=== PATIENT | male | born 1975 | race Hispanic/Latino ===

== ENCOUNTER 2023-01-26 15:53 | Emergency (ER) | payer OTHER ==
[2023-01-26] VITALS (8 sets, daily range): BP systolic 112–149; BP diastolic 78–106
[~2023-01-26] VITALS: Ht 167.6 cm; Wt 81.0 kg
[2023-01-26] MEDS ORDERED: METHOCARBAMOL500 MG PO (18:04)
[2023-01-26] MEDS ORDERED: NAPROXEN500 MG PO (18:04)
== END 2023-01-26 18:22 | disposition home or self-care (01) | DRG 605 ==
LOC: EDBD 15:53 → ED 15:53
DX: S00.01XA Abrasion of scalp, initial encounter (principal); S00.81XA Abrasion of other part of head, initial encounter; S50.812A Abrasion of left forearm, initial encounter; V49.40XA Driver injured in collision with unspecified motor vehicles in traffic accident, initial encounter; W22.11XA Striking against or struck by driver side automobile airbag, initial encounter